=== PATIENT | female | born 1965 | race Caucasian/White ===

== ENCOUNTER → 2016-09-09 | Day surgery (SDC) | payer OTHER ==
[~2016-09-09] MED LIST: BUPIVACAINE HCL PF 0.25% 30 ML VIAL ONE; LACTATED RINGER'S 1000 ML INJ 1,000 ML ONE; ONDANSETRON HCL 4 MG/2 ML VIAL IV PUSH ONE; PROPOFOL 200 MG/20 ML AMP IV ONE; ceFAZolin INJ 1,000 MG VIAL ONE
--- NOTE | 2016-09-10 08:39 | TN ---
cc: MALCOLM DE LEON DATE OF SURGERY: 09/09/2016 PREOPERATIVE DIAGNOSIS High grade cervical dysplasia, SANDEEP II. PROCEDURE Cold knife cone biopsy POSTOPERATIVE DIAGNOSIS High grade cervical dysplasia, SANDEEP II. ANESTHESIA General LMA ESTIMATED BLOOD LOSS None. DRAINS: None. OPERATIVE FINDINGS The patient had small midline cervix. There is no focal lesion identified. The application of Lugol's revealed no staining. Surgical specimen is included. LEEP excisional biopsy of the cervix, separate anterior resection with LEEP attachment and an endocervical curetting. INDICATIONS FOR PROCEDURE The patient followed for chronic low grade cervical dysplasia. Recent Pap smear revealed a high-grade finding. Recommendations are to proceed with cold knife cone biopsy and evaluation in the operative suite. The patient preoperatively received Ancef two grams prophylactically. PROCEDURE DESCRIPTION: The patient was taken to the operating room, under general anesthesia had an LMA placed. She was carefully positioned in dorsolithotomy position using candy-cane stirrups. She was prepped and draped. She had sequentials placed previously on the lower extremities for VTE prophylaxis. After she was prepped and draped time-out was conducted and agreed by all present in the room. Simple bivalve retractor was used to examine the cervix in the midline. Bimanual exam was unremarkable. No focal abnormality identified. The cervix was small and smooth. No focal abnormality deformity. Lugol's solution was applied with no visible change in color. The anterior portion of the cervix was secured with a single-tooth tenaculum, 0.25% plain Marcaine was injected at the 3 and 9 o'clock position, about 5 cc at each point. A #11 blade was used on a curved handle to excise a small conical shaped biopsy surrounding the exocervix. A suture was placed at the 12 o'clock position. A secondary pass was used with the LEEP. This provided cauterization of the vascular bed which was hemostatic. An endocervical curetting was then obtained and sent separately. At the completion of the procedure, there was no active bleeding. The cervix was dry. No hematoma. The cervix had Monsel's solution applied at the end of the case for added hemostatic purposes. At the completion of the case, final count was correct. The patient was stable. She was taken to the Recovery Room on room air. MD EMILE [place]/GONZALES /8:43 AM /8:37 AM
== END | disposition home or self-care (01) ==
LOC: ESDC 07:20
PROVIDERS: ATTEND Obstetrics & Gynecology
DX: N87.1 Moderate cervical dysplasia (principal)
CPT/HCPCS: 00940; 57520; 88305; 88307; J0690; J2405; J3010; J7120